=== PATIENT | female | born 1985 | race Asian ===

== ENCOUNTER 2019-03-17 10:24 | Emergency (ER) | payer MEDICAID, OTHER ==
[~2019-03-17] VITALS: Ht 175.3 cm; Wt 100.0 kg
[2019-03-17 10:48] VITALS: BP 123/86
[2019-03-17] MEDS ORDERED: IBUPROFEN 600MG TABLET PO ONE (17:00)
== END 2019-03-17 17:38 | disposition home or self-care (01) ==
LOC: ER 10:24
DX: H66.91 Otitis media, unspecified, right ear (principal); K02.9 Dental caries, unspecified
CPT/HCPCS: 99282; 99283